=== PATIENT | male | born 1990 | race Caucasian/White ===

== ENCOUNTER → 2021-08-31 | Outpatient (CLI) | payer OTHER ==
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
== END ==
LOC: KCIC 15:08
PROVIDERS: ATTEND Family Medicine
DX: M79.89 Other specified soft tissue disorders (principal); M25.511 Pain in right shoulder; M79.672 Pain in left foot
CPT/HCPCS: 73030; 73630